=== PATIENT | male | born 1955 | race Caucasian/White ===

== ENCOUNTER 2019-12-06 07:09 | Day surgery (SDC) | payer MEDICARE, OTHER ==
[~2019-12-06] VITALS: Ht 162.6 cm; Wt 75.3 kg
[~2019-12-06 07:09] MED LIST: ASPIR 8181 MG PO; BYSTOLIC5 MG PO; LIPITOR40 MG PO; LISINOPRIL10 MG PO
--- NOTE | 2019-12-06 08:45 | NUR ---
12/06/19 0845 Kiersten Valenzuela 0839 PATIENT ARRIVES TO PACU SLEEPING, AWAKENS WITH VERBAL STIMULI, THEN BACK TO SLEEP. PASSING GAS. RESP EVEN AND UNLABORED, NC AT 2 LITERS, TURNED OFF ON ARRIVAL TO PACU.
--- NOTE | 2019-12-06 10:30 | OR ---
[facility] [address], [place] [address] Signed DATE OF OPERATION: 12/06/2019 SURGEON: Doni Stover MD PREOPERATIVE DIAGNOSES: 1. Screening. 2. Internal hemorrhoids. POSTOPERATIVE DIAGNOSES: 1. Polypoid lesions at 28 and 20 cm. 2. A 4 mm polyps x3 at 15 cm. 3. Minimal to moderate daley-diverticulosis. 4. Minimal internal hemorrhoids. PROCEDURE PERFORMED: Colonoscopy with hot biopsy. ESTIMATED BLOOD LOSS: None. INDICATIONS: Trung is a 64-year-old gentleman, who underwent an unremarkable screening colonoscopy in 2008, he was 54 years old at that time. He did have small internal hemorrhoids at that time. He now returns for a followup screening colonoscopy. He said he is doing great. He has no lower GI complaints. There is no family history of colon cancer or polyps. I had met with Trung in the office. I gave him a pamphlet on colonoscopy. We reviewed the nature of the test along with the risks including, but not limited to gas bloating, crampy abdominal pain, bleeding, perforation requiring surgery, and missed diagnosis. We also reviewed the need for IV conscious sedation. He had expressed understanding and wished to proceed. DESCRIPTION OF PROCEDURE: Trung was taken into our operating room and placed in the left lateral decubitus position. We noticed his blood pressure was a little high and for some reason, he had stopped his blood pressure medications for two full days. We will go ahead and resume those afterwards. The systolic blood pressures were in the 180s. We gave him 6 mg of Versed and 125 mcg of fentanyl to cover the case. A digital rectal exam was performed and this was unremarkable. He has a little swelling and a little induration to his prostate, but no dominant nodules. The adult colonoscope was then introduced and advanced all around into the cecum under direct visualization of camera without Electronically Signed By: DONI STOVER MD 12/06/19 1030 PATIENT NAME: NAWAF PIRES OPERATIVE REPORT DATE OF : 53 REPORT #: [id number] PHYSICIAN: DONI STOVER MD PCP: DUDLEY HOWELL PAC REPORT IS CONFIDENTIAL AND NOT TO BE RELEASED WITHOUT AUTHORIZATION [facility] [address], [place] [address] Signed difficulty. Trung is 5 feet 4 inches tall at 166 pounds. His sigmoid colon is a little bit more narrow than some, so it took a few minutes to get through that area. It appeared like he had some irritation from the prep in several areas. We had biopsies to those areas at 28 and 20 cm with hot biopsy forceps. In the cecum, we could easily see his appendiceal orifice and the ileocecal valve. We slowly withdrew the scope. We took pictures throughout for photodocumentation. We found that on this occasion, he did have diverticula in the right and left colon. They were minimal to moderate size, minimal to moderate in number, and scattered about. As we came into the top of the rectum, he had three tiny 4 mm polyps at 15 cm. They were easily removed with the help of hot biopsy forceps. Upon retroflexion of the scope in the rectum, he has small internal hemorrhoids. He may see a little rectal bleeding from time to time. After this, the gas was suctioned out. The colonoscope removed. Trung tolerated the procedure quite well. RECOMMENDATIONS: I will see Stanley back in my office in 7 to 14 days to review his results. He will resume his chronic medications today. He can resume the aspirin in 1 week. He can resume NSAIDs in 1 week. Doni Stover MD [facility]/MOD[facility] /[id number] cc: Dr. Doni Veliz MD Iyad Jamali, MD Copies: DONI STOVER MD, IYAD MD ~ Electronically Signed By: DONI STOVER MD 12/06/19 1030 PATIENT NAME: NAWAF PIRES OPERATIVE REPORT DATE OF : 53 REPORT #: [id number] PHYSICIAN: DONI STOVER MD PCP: DUDLEY HOWELL PAC REPORT IS CONFIDENTIAL AND NOT TO BE RELEASED WITHOUT AUTHORIZATION
--- NOTE | 2019-12-08 17:21 | PATH ---
[facility] [address] [place], [place] [address] Signed SPECIMEN(S): A COLON AT 28 CM SPECIMEN(S): B COLON AT 20 CM SPECIMEN(S): C COLON POLYP AT 15 CM SPECIMEN SOURCE: A. COLON AT 28 CM B. COLON AT 20 CM C. COLON POLYP AT 15 CM CLINICAL HISTORY: Screening. Souza diverticulosis, colon and rectal polyps, hemorrhoids. MICROSCOPIC DESCRIPTION: Histologic sections of all submitted blocks are examined by light microscopy. These findings, together with the gross examination, support the pathologic diagnosis. FINAL PATHOLOGIC DIAGNOSIS: A. Colon, biopsy at 28 cm, biopsy: - Benign colonic mucosa with abdundant cautery artifact. - Negative for high-grade dysplasia or malignancy. - See Comment. B. Colon, biopsy at 20 cm, biopsy: - Colonic mucosa with abdundant cautery artifact. - Negative for high-grade dysplasia or malignancy. - See Comment. C. Colon, polyp at 15 cm, polypectomy: - Colonic mucosa with abdundant cautery artifact. - Negative for high-grade dysplasia or malignancy. - See Comment. COMMENT: Multiple additional levels of each biopsy were examined. The amount of cautery artifact precludes complete histologic examination for definitive hyperplastic changes or low-grade dysplasia of the biopsied tissue. If clinically indicated, a repeat biopsy may be helpful. As part of [employer] [employer]' Quality Improvement Program, this case was reviewed by another member of our pathology staff. NAL:cml:C2NR GROSS DESCRIPTION: PATIENT NAME: NAWAF PIRES PATHOLOGY DATE OF : 53 REPORT #: [id number] PHYSICIAN: JAYSHREE URIOSTEGUI PCP: DUDLEY HOWELL PAC REPORT IS CONFIDENTIAL AND NOT TO BE RELEASED WITHOUT AUTHORIZATION [facility] [address] [place], [place] [address] Signed Three specimens are received in three containers, labeled "GT." A. The specimen, labeled "GT, 1" and "colon at 28 cm" on the requisition, is received in formalin and consists of two soft garcia-red tissue fragments that measure 0.2 and 0.3 cm and are entirely submitted in cassette (A1). B. The specimen, labeled "GT, 2" and "colon at 20 cm" on the requisition, is received in formalin and consists of three soft garcia to red tissue fragments that vary from 0.2-0.3 cm and are submitted in toto in cassette (B1). C. The specimen, labeled "GT, 3" and "colon at 15 cm" on the requisition, is received in formalin and consists of four soft garcia to red tissue fragments that vary from 0.2-0.3 cm and are submitted in toto in cassette (C1). SS (under the direct supervision of a pathologist) The Gross Description was prepared using a voice recognition system. The report was reviewed for accuracy; however, sound-alike word errors, addition and/or deletions may occur. If there is any question about this report, please contact Client Services. PERFORMING LABORATORY: The technical component was performed by [facility], [address] [place] [id number] (Advanced Practice Professional: Cathryn Reeder MD; CLIA# [id number]). [facility], [address] [address] (CLIA# [id number]). Diagnostician: Yulia Tian MD Pathologist Electronically Signed 12/08/2019 Copies: ~ PATIENT NAME: NAWAF PIRES RAE PATHOLOGY DATE OF : 53 REPORT #: [id number] PHYSICIAN: JAYSHREE URIOSTEGUI PCP: DUDLEY HOWELL PAC REPORT IS CONFIDENTIAL AND NOT TO BE RELEASED WITHOUT AUTHORIZATION
== END 2019-12-06 09:20 | disposition home or self-care (01) ==
LOC: OPS 07:09 → DS 07:09 → OPS 08:15
PROVIDERS: Colon & Rectal Surgery
PROC: 0DBE8ZZ Excision of Large Intestine, Via Natural or Artificial Opening Endoscopic (ICD-10-PCS; principal; 2019-12-06 08:15)
DX: Z12.11 Encounter for screening for malignant neoplasm of colon (principal); K63.5 Polyp of colon; K57.30 Diverticulosis of large intestine without perforation or abscess without bleeding; K64.8 Other hemorrhoids; I25.10 Atherosclerotic heart disease of native coronary artery without angina pectoris; I10 Essential (primary) hypertension; E78.5 Hyperlipidemia, unspecified; L40.9 Psoriasis, unspecified; Z79.82 Long term (current) use of aspirin; Z79.899 Other long term (current) drug therapy; Z95.5 Presence of coronary angioplasty implant and graft; Z98.890 Other specified postprocedural states
CPT/HCPCS: 99153; G0500; J2250; J3010